=== PATIENT | female | born 1935 | race Caucasian/White ===

== ENCOUNTER 2020-08-08 22:18 | Emergency (ER) | payer MEDICARE, OTHER ==
[~2020-08-08] VITALS: Ht 147.3 cm; Wt 39.5 kg
[2020-08-08] MEDS ORDERED: ATOR1TAB19 PO (22:33)
[2020-08-08] MEDS ORDERED: NITR50CA34 PO (22:33)
[2020-08-08] MEDS ORDERED: SYNT75TA PO (22:33)
[2020-08-08] MEDS ORDERED: DICY1CAP8 PO (22:33)
[2020-08-08] MEDS ORDERED: CITR500T PO (22:33)
[2020-08-08] MEDS ORDERED: SYNT50TA PO (22:33)
[2020-08-08] MEDS ORDERED: GLIM2TAB4 PO (22:33)
[2020-08-08] MEDS ORDERED: REGL5TAB2 PO (22:33)
[2020-08-08] MEDS ORDERED: MIRA3350 PO (22:33)
[2020-08-08] MEDS ORDERED: LINZ145C PO (22:33)
[2020-08-08] MEDS ORDERED: SM M250T PO (22:33)
[2020-08-08] MEDS ORDERED: OMEP-221 PO (22:33)
[2020-08-08] MEDS ORDERED: ACET-910 PO (22:33)
[2020-08-08] MEDS ORDERED: NITR-67 PO (22:33)
[2020-08-08] MEDS ORDERED: LISI10TA22 PO (22:33)
[2020-08-08] MEDS ORDERED: XANA0.25 PO (22:33)
--- NOTE | 2020-08-09 00:51 | REPVR ---
PROCEDURE INFORMATION: Exam: CT Head Without Contrast Exam date and time: 08/09/2020 12:27 AM Age: 85 years old Clinical indication: Injury or trauma; Fall; Blunt trauma (contusions or hematomas) TECHNIQUE: Imaging protocol: Computed tomography of the head without contrast. Radiation optimization: All CT scans at this facility use at least one of these dose optimization techniques: automated exposure control; mA and/or kV adjustment per patient size (includes targeted exams where dose is matched to clinical indication); or iterative reconstruction. COMPARISON: No relevant prior studies available. FINDINGS: Brain: Mild decreased attenuation of the supratentorial white matter is likely secondary to chronic microvascular ischemia. No acute intracranial hemorrhage. Cerebral ventricles: Ventricular and subarachnoid spaces are age appropriate. Paranasal sinuses: Visualized sinuses are unremarkable. No fluid levels. Mastoid air cells: Opacification of the tsilo-myonfgq-kipt-left mastoid air cells and middle ear cavities. Vasculature: Intracranial vascular calcification. Bones/joints: Unremarkable. No acute fracture. Soft tissues: Anterior/superior scalp soft tissue injury. IMPRESSION: No acute intracranial abnormality. Electronically signed by: Ridge Mata On 08/09/2020 00:50:28 AM
--- NOTE | 2020-08-09 00:55 | REPVR ---
PROCEDURE INFORMATION: Exam: CT Cervical Spine Without Contrast Exam date and time: 08/09/2020 12:27 AM Age: 85 years old Clinical indication: Injury or trauma; Fall; Blunt trauma TECHNIQUE: Imaging protocol: Computed tomography images of the cervical spine without contrast. Radiation optimization: All CT scans at this facility use at least one of these dose optimization techniques: automated exposure control; mA and/or kV adjustment per patient size (includes targeted exams where dose is matched to clinical indication); or iterative reconstruction. COMPARISON: No relevant prior studies available. FINDINGS: Bones/joints: Nonspecific straightening. Chronic appearing loss of height involving C4, C5, C6 and C7. There is compression fracture involving T4. Moderate degenerative change about the dens. Mild prevertebral osteophytosis. There are bilateral facet joint degenerative changes. No acute cervical spine fracture. Discs/Spinal canal/Neural foramina: No definite significant central canal stenosis within limitations of technique. Lungs: There are cystic paraspinal masses at the right greater than left lung apices measuring up to 4 cm on the right and 1.5 cm on the left. Vasculature: Vascular calcification. Soft tissues: Unremarkable. IMPRESSION: 1. No acute cervical spine fracture. 2. T4 compression fracture, please refer to report for CT of the thoracic spine. 3. There are cystic paraspinal masses at the upper thoracic spine measuring up to 4 cm on the right and 1.5 cm on the left. Electronically signed by: Ridge Mata On 08/09/2020 00:54:56 AM
--- NOTE | 2020-08-09 01:10 | REPVR ---
PROCEDURE INFORMATION: Exam: CT Thoracic Spine Without Contrast Exam date and time: 08/09/2020 12:27 AM Age: 85 years old Clinical indication: Injury or trauma; Fall; Blunt trauma (contusions or hematomas) TECHNIQUE: Imaging protocol: Computed tomography images of the thoracic spine without contrast. Radiation optimization: All CT scans at this facility use at least one of these dose optimization techniques: automated exposure control; mA and/or kV adjustment per patient size (includes targeted exams where dose is matched to clinical indication); or iterative reconstruction. COMPARISON: No relevant prior studies available. FINDINGS: Vertebrae: Diffuse osteopenia. There is a burst fracture of the T4 vertebral body with a moderate decrease in vertebral height. Mild anterior wedging/compression fracture of the T7 vertebral body. A mild decrease in vertebral height is also identified at C7. The remaining thoracic vertebral bodies are normal in height, without abnormal subluxation. Increased kyphosis of the thoracic spine. Paravertebral masses are identified at the T2 vertebral level, largest on the right side measuring 3.8 x 2.7 x 3.4 cm. On the left side, this measures 1.2 x 1.0 x 1.2 cm. Neurogenic tumors are considered, although additional pathology, including metastatic disease, cannot be excluded. Discs/Spinal canal/Neural foramina: Degenerative changes are visualized at multiple thoracic levels as well as the L1-L2 level, with disc bulge/osteophyte complexes. No severe spinal canal stenosis identified within the thoracic spine. Soft tissues: Within the soft tissues of the upper back, there is a cutaneous/subcutaneous nodule measuring 1.0 cm in diameter. This is visualized on series 502, image 15. There is a fat containing Bochdalek's hernia at the left lung base. Vasculature: Atherosclerosis of the aorta. There is an aberrant right subclavian artery. Lungs: Bibasilar atelectatic changes identified within the lungs. A small bulla is seen at the left lung base. Mediastinum: A ltrh-we-jrfpbslf sized hiatal hernia is visualized. IMPRESSION: 1. There is a burst fracture of the T4 vertebral body with a moderate decrease in vertebral height. Mild anterior wedging/compression fracture of the T7 vertebral body. A mild decrease in vertebral height is also identified at C7. Clinical correlation recommended. The acuity of these findings can be further evaluated with MRI, as clinically indicated. 2. Increased kyphosis of the thoracic spine. 3. Paravertebral masses are identified at the T2 vertebral level, largest on the right side measuring 3.8 x 2.7 x 3.4 cm. On the left side, this measures 1.2 x 1.0 x 1.2 cm. Neurogenic tumors are considered, although additional pathology, including metastatic disease, cannot be excluded. Correlation with MRI with/without contrast recommended. 4. Degenerative changes are visualized at multiple thoracic levels as well as the L1-L2 level. 5. A ubrr-pu-veyxexzz sized hiatal hernia is visualized. 6. Within the soft tissues of the upper back, there is a cutaneous/subcutaneous nodule measuring 1.0 cm in diameter. 7. There is an aberrant right subclavian artery. Electronically signed by: Lars Lopez On 08/09/2020 01:09:54 AM
[2020-08-09] MEDS ORDERED: traMADol 50 MG TAB PO ONE (03:00)
[2020-08-09] MEDS ORDERED: PILL CUTTER 1 EACH XX ONE (03:15)
[2020-08-09 03:21] VITALS: BP 222/109
[2020-08-09] MEDS ORDERED: ALPRAZolam 0.25 MG TAB PO ONE (03:40)
[2020-08-09 04:23] LABS: RSV AMPLIFICATION NEGATIVE (NEGATIVE)
[2020-08-09 04:31] LABS: BASO % 0.4 % (0.0-1.0); EOS % 0.1 % (0.0-3.0); HEMATOCRIT 41.2 % (36.0-47.0); HEMOGLOBIN 13.4 g/dl (12.0-15.5); LYMPH # 0.9 10^3/uL (1.5-5.0); LYMPH % 11.2 % (24.0-44.0); MEAN CORPUSCULAR HEMOGLOBIN 30.5 pg (27.0-33.0); MEAN CORPUSCULAR HGB CONC 32.5 g/dl (32.0-36.5); MEAN CORPUSCULAR VOLUME 93.8 fl (80.0-96.0); MONO # 0.5 10^3/uL (0.0-0.8); MONO % 6.6 % (2.0-8.0); NEUTROPHILS # 6.6 10^3/uL (1.5-8.5); NEUTROPHILS % 81.2 % (36.0-66.0); PLATELET COUNT, AUTOMATED 179 10^3/uL (150-450); RED BLOOD COUNT 4.39 10^6/uL (4.00-5.40); WHITE BLOOD COUNT 8.1 10^3/uL (4.0-10.0)
[2020-08-09 04:50] LABS: ERYTHROCYTE SEDIMENTATION RATE 6 mm/hr (0-30)
--- NOTE | 2020-08-09 04:51 | REPVR ---
PROCEDURE INFORMATION: Exam: XR Chest Exam date and time: 08/09/2020 4:45 AM Age: 85 years old Clinical indication: Injury or trauma; Fall; Blunt trauma (contusions or hematomas); Additional info: Transfer TECHNIQUE: Imaging protocol: XR of the chest. Views: 1 view. COMPARISON: CT Spine,cervical w/o contrast 08/09/2020 12:26 AM FINDINGS: Lungs: Unremarkable. No consolidation. Pleural spaces: Unremarkable. No pleural effusion. No pneumothorax. Heart/Mediastinum: Cardiac silhouette appears within normal limits for portable technique. Vasculature: Elongation of the thoracic aorta with calcification. Bones/joints: Diffuse osteopenia. There are degenerative changes involving the shoulders and spine. Thoracic spine fractures are better demonstrated on CT. Soft tissues: Contour abnormality at the medial right upper chest corresponding to paraspinal mass which is better demonstrated on CT. IMPRESSION: 1. No pneumothorax or consolidation. 2. Thoracic spine fractures are better demonstrated on CT. 3. Additional findings as above. Electronically signed by: Ridge Mata On 08/09/2020 04:50:57 AM
[2020-08-09 05:13] LABS: BLOOD UREA NITROGEN 16 MG/DL (7-18); C REACTIVE PROTEIN QUANTITATIV 0.45 MG/DL (0.00-0.30); CALCIUM LEVEL 8.6 MG/DL (8.8-10.2); CARBON DIOXIDE LEVEL 28 MEQ/L (21-32); CHLORIDE LEVEL 106 MEQ/L (98-107); CK-MB VALUE MASS 1.9 NG/ML (<3.6); CPK CREATINE PHOSPHOKINASE 69 U/L (26-192); CREATININE FOR GFR 0.55 MG/DL (0.55-1.30); GLOMERULAR FILTRATION RATE > 60.0 (>32); GLUCOSE, FASTING 122 MG/DL (70-100); MB/CK RELATIVE INDEX 2.75 (< OR =4); POTASSIUM SERUM 4.1 MEQ/L (3.5-5.1); SODIUM LEVEL 140 MEQ/L (136-145); TROPONIN I 0.13 NG/ML (< 0.10)
--- NOTE | 2020-08-09 06:02 | ECGEPIP ---
[facility] - ED Test Date: 2020-08-09 Pat Name: ANATOLIY LEACH Department: Room: - Gender: Female Transmitter Chief: DELIA : 1935 Requested By: Martell Ulloa Order Number: [id number] Reading MD: Alysa Hill Measurements Intervals Elfrida Rate: 74 P: 45 MA: 154 QRS: -49 QRSD: 68 T: 6 QT: 424 QTc: 470 Interpretive Statements Normal sinus rhythm Left axis deviation Inferior infarct , age undetermined Nonspecific ST T wave changes Borderline prolonged QTc Baseline artifact may affect reading No prior ECG for comparison Electronically Signed on 08-09-2020 6:02:09 EDT by Alysa Hill
[2020-08-09 08:43] VITALS: BP 175/86
[2020-08-09] MEDS ORDERED: MORPHINE 2 MG/ML 1ML VIAL (J2270) IV ONE (08:55)
== END 2020-08-09 09:08 | disposition short-term general hospital (02) ==
LOC: M ED 22:18
DX: S22.041A Stable burst fracture of fourth thoracic vertebra, initial encounter for closed fracture (principal); S22.060A Wedge compression fracture of T7-T8 vertebra, initial encounter for closed fracture; M79.9 Soft tissue disorder, unspecified; W19.XXXA Unspecified fall, initial encounter; Y92.009 Unspecified place in unspecified non-institutional (private) residence as the place of occurrence of the external cause; Y93.9 Activity, unspecified; Y99.9 Unspecified external cause status; I10 Essential (primary) hypertension; E78.5 Hyperlipidemia, unspecified; Z88.6 Allergy status to analgesic agent; Z88.5 Allergy status to narcotic agent
CPT/HCPCS: 70450; 71045; 72125; 72128; 80048; 82550; 82553; 83605; 84484; 85025; 85652; 86140; 87631; 93005; 96374; 99285; J2270